=== PATIENT | female | born 1955 | race Two or more races ===

== ENCOUNTER 2017-12-15 07:23 | Outpatient (CLI) | payer OTHER | END 2017-12-15 07:27 | disposition home or self-care (01) | LOC: SONOGRAMA 07:23 | DX: E04.1 Nontoxic single thyroid nodule (principal) ==

== ENCOUNTER 2018-02-06 08:01 | Outpatient (CLI) | payer OTHER | END 2018-02-06 08:03 | disposition home or self-care (01) | LOC: SONOGRAMA 08:01 | DX: E04.1 Nontoxic single thyroid nodule (principal) ==